=== PATIENT | female | born 1990 | race Caucasian/White ===

== ENCOUNTER 2023-09-11 00:14 | Emergency (ER) | payer OTHER ==
[~2023-09-11] VITALS: Ht 157.5 cm; Wt 68.2 kg
[2023-09-11 00:15] VITALS: TEMP 98.1
[2023-09-11 00:44] LABS: BASOPHILS % (AUTO) 0.6 % (0.0-2.0); EOSINOPHILS % (AUTO) 1.8 % (1.0-6.0); HEMATOCRIT 40.5 % (36-46); HEMOGLOBIN 13.7 g/dL (12.0-16.0); LYMPHOCYTES # (AUTO) 1.9 K/uL (1.0-4.8); MEAN CORPUSCULAR HEMOGLOBIN 31.2 pg (26.0-34.0); MEAN CORPUSCULAR HGB CONC 33.9 G/dL (31.0-37.0); MEAN CORPUSCULAR VOLUME 92 fL (80-100); MONOCYTES # (AUTO) 0.5 K/uL (0.1-1.0); MONOCYTES % (AUTO) 9.2 % (2.0-9.0); NEUTROPHILS % (AUTO) 54.4 % (40.0-70.0); PLATELET COUNT (AUTO) 299 K/uL (150-450); RED BLOOD CELL COUNT(AUTO) 4.39 MIL/uL (4.00-5.20); RED CELL DISTRIBUTION WIDTH 13.1 % (11.5-14.5); WHITE BLOOD COUNT (AUTO) 5.5 K/uL (4.5-11.0)
[2023-09-11 00:55] LABS: ANION GAP 4 mmol/L (8-16); CARBON DIOXIDE 32 mmol/L (22-29); CHLORIDE 103 mmol/L (98-107); CREATININE 0.99 mg/dL (0.60-1.30); GLOMERULAR FILTR. RATE CALC > 60 mL/min (>60); GLUCOSE,RANDOM 108 mg/dL (70-110); POTASSIUM 4.5 mmol/L (3.5-5.1); SODIUM SERUM 139 mmol/L (136-145); UREA NITROGEN, BLOOD 13 mg/dL (7-18)
[2023-09-11 01:04] LABS: TROPONIN I-HIGH SENSITIVITY Less Than 4 ng/L (<51)
[2023-09-11] MEDS: SODIUM CHLORIDE 0.9% 1,000 ML IV ONE (02:41)
[2023-09-11] MEDS: FAMOTIDINE 20 MG/2 ML VIAL IVP ONE (02:41)
[2023-09-11 02:48] LABS: ALANINE AMINOTRANSFERASE 26 U/L (12-78); ALBUMIN 3.7 g/dL (3.4-5.0); ALKALINE PHOSPHATASE 59 U/L (46-116); ASPARTATE AMINOTRANSFERASE 22 U/L (15-37); BILIRUBIN,TOTAL 0.3 mg/dL (0.1-1.0); LIPASE 55 U/L (16-77); TOTAL PROTEIN, SERUM 7.2 g/dL (6.4-8.2)
[2023-09-11] MEDS: MORPHINE SULFATE 2 MG/ML SYRINGE IVP ONE (04:05)
[2023-09-11 07:46] VITALS: BP 130/75; PULSE 74; RESP 20
== END 2023-09-11 09:22 | disposition home or self-care (01) ==
LOC: EMS 00:16
DX: K82.4 Cholesterolosis of gallbladder (principal)
CPT/HCPCS: 99285; 96374; 76705; 71045; 96361; 96375; 80048; 80076; 83690; 84484; 84703; 85025; 36415; 93005; J3490; J2270; J7030